=== PATIENT | male | born 1945 | race Caucasian/White ===

== ENCOUNTER 2022-08-27 18:28 | Emergency (ER) | payer MEDICARE, OTHER, SELFPAY ==
--- NOTE | ~2022-08-27 | XR_ITS ---
EXAMINATION: XR chest 2V DATE: 08/27/2022 19:01 INDICATION: Cough. COVID positive. TECHNIQUE: PA and lateral views of the chest were obtained. COMPARISON: Chest radiograph dated 03/16/05 FINDINGS: Airspace opacities in the bilateral lower lung zones. No pleural effusion or pneumothorax. Cardiomega ly. Three lead pacemaker seen with leads projecting over the expected locations of the right atrial a ppendage, apex of the right ventricle and overlying the left ventricle likely having traversed the co ronary sinus. Small hiatal hernia. Mild thoracic kyphosis with minimal anterior wedging of a few mid to lower thoracic vertebral bodies. Severe thoracic spondylosis. IMPRESSION: 1. Opacities at the bilateral lower lung zones which could represent atelectasis or pneumonia. 2. Cardiomegaly. 3. Small hiatal hernia. Reviewed, dictated and finalized at location A. [facility] [employer] [facility]IST[facility] IMPRESSION: 1. Opacities at the bilateral lower lung zones which could represent atelectasi s or pneumonia. 2. Cardiomegaly. 3. Small hiatal hernia.
[2022-08-27 18:41] VITALS: BP 136/84; PULSE 80; RESP 24; TEMP 37.3; O2SAT 97
--- NOTE | 2022-08-27 18:44 | ED.URI ---
HPI - URI/Sore Throat General Chief Complaint: Upper Respiratory Infection Stated Complaint: COUGH/TIRED Time Seen by Provider: 08/27/22 18:44 Source: patient Mode of arrival: ambulatory Limitations: no limitations History of Present Illness HPI Narrative: Socrates is a 77-year-old male patient presenting to the clinic today with complaints of cough and fatigue since . He reports he did an at-home COVID test this morning and was positive he reports he is having a nonproductive cough. He denies any fever or chills. History of COPD. He does reports some shortness of breath with exertion. States he did breathing treatment at 4:15 p.m. today MD elicited complaint: cough, rhinorrhea, nasal congestion and other (Fatigue) Related Data Home Medications Medication Instructions Recorded Confirmed albuterol (refill) 90 90 mcg inhalation QID 08/27/22 08/27/22 mcg/actuation aerosol inhaler albuterol sulfate 2.5 mg/3 mL 2.5 mg inhalation Q6H 08/27/22 08/27/22 (0.083 %) solution for nebulization amlodipine 10 mg tablet 10 mg PO DAILY 08/27/22 08/27/22 apixaban 5 mg tablet (Eliquis) 5 mg PO BID 08/27/22 08/27/22 carvedilol 12.5 mg tablet 12.5 mg PO BID 08/27/22 08/27/22 esomeprazole magnesium 40 mg 40 mg PO DAILY 08/27/22 08/27/22 capsule,delayed release (Nexium) famotidine 20 mg tablet 20 mg PO BID 08/27/22 08/27/22 fluticasone 500 mcg-salmeterol 50 1 inh inhalation Q12H 08/27/22 08/27/22 mcg/dose blistr powdr for inhalation (Wixela Inhub) furosemide 20 mg tablet 20 mg PO DAILY 08/27/22 08/27/22 glucosamine sulf dipot 1 cap PO BID 08/27/22 08/27/22 chlr,msm,chond 550 mg-C 30 mg-omega 1 mg capsule (Glucosamine Chondroitin) lactobacillus combination no.4 3 1 mmu cells PO DAILY 08/27/22 08/27/22 billion cell capsule losartan 100 mg tablet 100 mg PO DAILY 08/27/22 08/27/22 lysine 1,000 mg tablet 1,000 mg PO DAILY 08/27/22 08/27/22 melatonin 10 mg tablet 10 mg PO HS PRN Sleep 08/27/22 08/27/22 kbsvzrzgukgs-bdwwitbf-hlehwb tablet 1 tablet PO DAILY 08/27/22 08/27/22 potassium chloride 20 mEq 20 meq PO DAILY 08/27/22 08/27/22 tablet,extended release(part/cryst) pravastatin 20 mg tablet 20 mg PO DAILY 08/27/22 08/27/22 psyllium husk 0.4 gram capsule 0.4 g PO DAILY 08/27/22 08/27/22 (Fiber (psyllium husk)) sildenafil 100 mg tablet 100 mg PO DAILY PRN Erectile 08/27/22 08/27/22 Dysfunction simethicone 80 mg chewable tablet 80 mg PO DAILY PRN Abdominal 08/27/22 08/27/22 Distention sucralfate 1 gram tablet 1 g PO USEASDIRECTD 08/27/22 08/27/22 tamsulosin 0.4 mg capsule 0.4 mg PO HS 08/27/22 08/27/22 tiotropium bromide 2.5 2 inh inhalation QAM 08/27/22 08/27/22 mcg/actuation mist for inhalation (Spiriva Respimat) tramadol 50 mg tablet 50 mg PO HS 08/27/22 08/27/22 vitamin A-vitamin C-vit E-min 1 tablet PO DAILY 08/27/22 08/27/22 tablet Allergies Allergy/AdvReac Type Severity Reaction Status Date / Time No Known Allergies Allergy Mild Verified 08/27/22 18:37 Review of Systems Review of Systems: Pertinent positives per HPI. Patient denies any fever, chills, rash, headache, visual changes, dizziness, chest pain, palpitations, nausea, vomiting, diarrhea, constipation, abdominal pain, or any urinary issues. [facility] Comments At the time of my signature, I reviewed and agree with the nursing past medical, surgical, social, and family history. There is no relevant family history pertinent to the patient complaint. Exam Narrative: General: Well-developed, overweight, in no apparent distress Head: Normocephalic, atraumatic Eyes: Pupils equally round and reactive to light bilaterally, EOM intact, sclera and conjunctive clear, no discharge, lids normal Ears: TMs intact and dull, ear canals clear, no drainage, grossly hearing normal. Nose: Nares patent, clear nasal discharge, no inflammation, no sinus tenderness. Mouth: Oral pharynx without lesions or masses, good dentition, MMM. Postnasal drip Neck
== END 2022-08-27 19:27 | disposition home or self-care (01) ==
PROVIDERS: Emergency Provider Nurse Practitioner Family
DX: U07.1 COVID-19 (principal); J12.82 Pneumonia due to coronavirus disease 2019; J44.9 Chronic obstructive pulmonary disease, unspecified; I10 Essential (primary) hypertension; Z95.0 Presence of cardiac pacemaker; K21.9 Gastro-esophageal reflux disease without esophagitis; N40.0 Benign prostatic hyperplasia without lower urinary tract symptoms; M19.90 Unspecified osteoarthritis, unspecified site; Z96.653 Presence of artificial knee joint, bilateral
CPT/HCPCS: 71046; 87426; 99213; C9803; G0463